=== PATIENT | male | born 1995 | race Caucasian/White ===

== ENCOUNTER 2021-07-10 08:08 | Emergency (ER) | payer MEDICAID ==
[~2021-07-10] VITALS: Ht 177.8 cm; Wt 92.0 kg
[2021-07-10] MEDS ORDERED: NICARDIPINE 50 MG in SODIUM CHLORIDE 0.9% 230 ML IV STA ×2 (08:12→08:28)
[2021-07-10 08:34] LABS: BASOPHILS % 1.3 % (0.0-2.0); EOSINOPHILS % 1.5 % (0.0-5.0); HEMATOCRIT. 27.3 % (42.0-52.0); HEMOGLOBIN. 8.8 g/dL (14.0-18.0); LYMPHOCYTES % 8.8 % (20.0-50.0); MEAN CORPUSCULAR HEMOGLOBIN 29.5 pg (28.0-32.0); MEAN PLATELET VOLUME 9.7 fl (7.4-10.4); MONOCYTES % 3.9 % (2.0-8.0); NEUTROPHILS % 84.5 % (40.0-76.0); PLATELET 206 x1000/uL (130-400); RED BLOOD CELL COUNT 2.99 mill/uL (4.7-6.1); RED CELL DISTRIBUTION WIDTH 18.7 % (11.6-14.6)
[2021-07-10 08:42] LABS: CHLORIDE 101 mEq/L (98-107)
[2021-07-10 09:07] LABS: BG BASE EXCESS -1.2 mmol/L (-2.0-2.0); BG CARBOXYHEMOGLOBIN 0.8 % (0.5-1.5); BG DEOXYHEMOGLOBIN 0.7 % (0.0-5.0); BG FRACTION INSPIRED OXYGEN 40; BG HCO3 ACT 23.6 mmol/L (22.0-26.0); BG METHEMOGLOBIN 0.3 % (0.0-1.5); BG OXYGEN SATURATION 99.3 % (92.0-98.5); BG OXYHEMOGLOBIN 98.2 % (94.0-97.0); BG PCO2 39.7 mmHg (35.0-45.0); BG PH 7.392 (7.350-7.450); BG PO2 183.7 mmHg (75.0-100.0); BG SAMPLE SITE RIGHT RADIAL; BG TOTAL HEMOGLOBIN 9.1 g/dL (12.0-18.0); BG VENT MODE VENT - AC
[2021-07-10] MEDS ORDERED: ASPIRIN 325MG TABLET PO ONE (10:30)
[2021-07-10 13:00] VITALS: BP 183/113
== END 2021-07-10 13:43 | disposition home or self-care (01) ==
LOC: ER 08:08 → EDBEDREQTM 11:05 → EDBEDREQ 11:05 → EDBEDREQTM 12:15 → EDBEDREQ 12:15 → ER 13:43 → CANBEDREQ 20:02
DX: J96.00 Acute respiratory failure, unspecified whether with hypoxia or hypercapnia (principal); E87.70 Fluid overload, unspecified; I10 Essential (primary) hypertension; Z98.890 Other specified postprocedural states
CPT/HCPCS: 36415; 36600; 71045; 80053; 82375; 82805; 84484; 85025; 93005; 94660; 99291; J3490; J7050

== ENCOUNTER 2021-09-01 12:49 | Emergency (ER) | payer MEDICAID ==
[~2021-09-01] VITALS: Ht 167.6 cm; Wt 79.0 kg
[2021-09-01 12:59] VITALS: BP 195/119
[2021-09-01 15:07] LABS: BASOPHILS % 1.2 % (0.0-2.0); EOSINOPHILS % 5.3 % (0.0-5.0); HEMOGLOBIN. 7.6 g/dL (14.0-18.0); LYMPHOCYTES % 11.4 % (20.0-50.0); MEAN CORPUSCULAR VOLUME 93.5 fL (80.0-94.0); MEAN PLATELET VOLUME 9.6 fl (7.4-10.4); MONOCYTES % 5.5 % (2.0-8.0); NEUTROPHILS % 76.6 % (40.0-76.0); PLATELET 174 x1000/uL (130-400); RED BLOOD CELL COUNT 2.46 mill/uL (4.7-6.1); RED CELL DISTRIBUTION WIDTH 16.2 % (11.6-14.6)
[2021-09-01 15:13] LABS: CHLORIDE 97 mEq/L (98-107)
== END 2021-09-01 16:05 | disposition home or self-care (01) ==
LOC: ER 13:00
DX: D53.9 Nutritional anemia, unspecified (principal); I12.0 Hypertensive chronic kidney disease with stage 5 chronic kidney disease or end stage renal disease; N18.6 End stage renal disease; Z99.2 Dependence on renal dialysis
CPT/HCPCS: 36415; 80053; 85025; 99283